=== PATIENT | male | born 1935 ===

== ENCOUNTER 2016-12-27 20:53 | Inpatient (IN) ==
--- NOTE | 2016-12-27 21:43 | Emergency Department Note ---
Disposition Clinical Impression: Elevated troponin Disposition: Admitted As Inpatient Condition: Good Referrals: NO,PCP [Primary Care Provider] - Forms: ED Satisfaction Letter General Adult HPI - General Chief complaint: ED Weakness Stated complaint: + trop, weakness Time Seen by Provider: 12/27/16 21:14 Source: family, EMS Limitations: no limitations Nursing Notes Reviewed: Yes Vital Signs Reviewed: Yes - History of Present Illness HPI Narrative: 81 y/o male with history of CVA years ago. He gets home PT due to chronic debility. Physical therapy noticed he was having difficulty walking and elevated HR so went [facility]. He was found to have elevated troponin. Hx of CABG and stents. [facility] but this was not seen on our EKG. He has difficulty expressing himself due to his old stroke. Pain Scale: 0 Improves with: nothing Worsens with: nothing - Related Data Allergies Allergy/AdvReac Type Severity Reaction Status Date / Time cephalexin Allergy Hives Verified 12/27/16 20:56 ciprofloxacin [From Cipro] Allergy Hives Verified 12/27/16 20:56 codeine Allergy Hives Verified 12/27/16 20:56 All systems ED: reviewed and negative except as stated. Constitutional: Denies: fever Respiratory: Denies: cough Gastrointestinal: Denies: vomiting, diarrhea Integumentary: Denies: rash Past Medical History - Past Medical History Medical history: Reports: CVA, hypertension, myocardial infarction Psychiatric history: Reports: no psych history - Social History Smoking Status: Former smoker Alcohol use: Reports: none Drug use: Reports: none Physical Exam - General Limitations: physical limitation General appearance: alert - Head Head exam: atraumatic - ENT ENT exam: normal exam, normal oropharynx - Neck Neck exam: Present: normal inspection - Respiratory Respiratory exam: Present: normal lung sounds bilaterally. Absent: respiratory distress - Cardiovascular Cardiovascular exam: Present: normal rhythm, tachycardia - Abdominal Exam Abdominal exam: Present: soft, Non-Tender - Extremities Exam Extremities exam: Present: normal inspection, other (right side is contracted from chronic disuse) - Neurological Exam Neurological exam: Present: alert - Psychiatric Psychiatric exam: Present: normal affect, normal mood - Skin Skin exam: Present: warm, dry Course Course Narrative: Positive troponin. No EKG changes found. Will admit with dx of NSTEMI Vital Signs Temperature 97.9 F 12/27/16 20:57 Pulse Rate 106 12/27/16 20:57 Respiratory Rate 16 12/27/16 20:57 Blood Pressure 117/67 12/27/16 20:57 O2 Sat by Pulse Oximetry 87 L 12/27/16 20:57 Temperature 97.9 F 12/27/16 20:57 Pulse Rate 106 12/27/16 20:57 Respiratory Rate 16 12/27/16 20:57 Blood Pressure 117/67 12/27/16 20:57 O2 Sat by Pulse Oximetry 87 L 12/27/16 20:57 Oxygen Delivery Oxygen Delivery Room Air Medical Decision Making - Medical Records Medical records reviewed: Yes I reviewed the patient's medical records. - Lab Data Lab results reviewed: Yes I reviewed the patient's lab results. - EKG Data EKG #1 EKG attestation: Yes I reviewed and interpreted this EKG. EKG shows normal: sinus rhythm Rate: tachycardia Interpretation: no acute changes Attestation Statement - Attestation Attestation: I, Jun Serrano MD, personally performed a history and physical exam of the patient and discussed their management with the resident. I reviewed the resident's note and agree with the documented findings, medical decision making , and plan of care. 81-year-old male referred here from the [facility] urgent care for an elevated troponin. Patient presented there for increased generalized weakness. Patient is generally nonambulatory without a lot of assistance. reports that they recently started some home therapy to try to get him to ambulating. She states that he did well Sunday and Sunday but then 3 days ago on Sunday he was extremely weak and was unable to ambulate and with assistance. Since then he has had increased generalized weakness and unable to stand. She also states that he seems to be more short of breath. He was seen at the [facility] and had a workup which revealed an elevated troponin and was then referred here for admission and evaluation and cardiology consultation. On examination patient is an elderly male in no acute distress. He is alert but does not really answer questions. There is no cyanosis or diaphoresis. Breath sounds are decreased but equal bilaterally. Heart regular rate and rhythm. Abdomen soft with normal bowel sounds and no apparent tenderness. EKG here shows some minimal ST depression in lead 2 and V3 through V5. The hospitalist, Dr. Bowie, was consulted and accepted admission of the patient.
[2016-12-28] MEDS ORDERED: Sennosides/Docusate Sodium TABLET PO PRN (00:52)
[2016-12-28] MEDS ORDERED: *HR* OxyCODONE Immed Rel 5 MG TABLET PO PRN (00:56)
[2016-12-28] MEDS ORDERED: *HR* Morphine 2 MG/ML SYRINGE IVP PRN (00:56)
[2016-12-28] MEDS ORDERED: Naloxone 0.4 MG/ML INJ IVP PRN (00:56)
[2016-12-28] MEDS ORDERED: *HR* Promethazine 25 MG/ML VIAL IVP PRN (00:56)
[2016-12-28] MEDS ORDERED: Acetaminophen 325 MG TABLET PO PRN (00:56)
[2016-12-28] MEDS ORDERED: Bumetanide 1 MG/4 ML VIAL IVP ONE (01:01)
[2016-12-28] MEDS ORDERED: *HR* Metoprolol 5 MG/5 ML VIAL IVP PRN (01:01)
[2016-12-28] MEDS ORDERED: Nitroglycerin 0.4 MG TAB.SUBL SL PRN (01:01)
[2016-12-28] MEDS ORDERED: Aspirin 81 MG TAB.CHEW PO ONE (01:01)
[2016-12-28] MEDS ORDERED: *HR* Enoxaparin 60 MG/0.6 ML SYRINGE SQ ONE (01:04)
[2016-12-28 02:23] LABS: Basophils # 0.1 K/mcL (0.0-0.2); Basophils % 0.3 %; Eosinophils # 1.3 K/mcL (0.0-0.6); Eosinophils % 7.2 %; Hematocrit 31.9 % (37.5-50.1); Hemoglobin 10.2 g/dL (12.9-16.9); Immature Platelets 4.6 % (1.1-6.1); Lymphocytes # 1.6 K/mcL (0.6-4.6); Lymphocytes % 8.5 %; Mean Corpuscular Hemoglobin 30.5 pg (28.0-33.3); Mean Corpuscular Volume 95.5 fL (83.0-100.0); Mean Platelet Volume 10.4 fL (9.4-12.4); Monocytes # 1.6 K/mcL (0.0-1.3); Monocytes % 8.5 %; Neutrophils # 13.6 K/mcL (1.6-8.9); Platelet Count 293 K/mcL (140-400); Red Blood Count 3.34 M/mcL (4.19-5.50); Red Cell Distribution Width 16.3 % (11.5-14.5); Segmented Neutrophils % 74.5 %
[2016-12-28 02:30] LABS: VBG HCO3 28.5 mEq/L (21-27); VBG PH 7.4 pH Units (7.32-7.42)
[2016-12-28 02:33] LABS: Hemoglobin A1C 5.2 %
[2016-12-28 02:36] LABS: INR 1.4; Prothrombin Time 14.8 Seconds (9.4-12.1)
[2016-12-28 02:38] LABS: Activated Partial Thrombo Time 29.5 Seconds (26.0-36.0); Ionized Calcium 1.22 mmol/L (1.15-1.35)
[2016-12-28 02:49] LABS: Alanine Aminotransferase 39 Units/L (0-55); Albumin 2.5 g/dL (3.5-5.0); Albumin/Globulin Ratio 0.5 (1.1-2.2); Alkaline Phosphatase 105 Units/L (38-126); Aspartate Amino Transferase 40 Units/L (5-34); BUN/Creatinine Ratio 13 (6-26); Blood Urea Nitrogen 14 mg/dL (8-26); C-Reactive Protein 137 mg/L (Less than 5); Calcium 9.6 mg/dL (8.6-10.8); Carbon Dioxide 26 mEq/L (19-29); Chloride 107 mEq/L (98-109); Chol/HDL Ratio 2.3 (0-4.9); Cholesterol 90 mg/dL (< 200); Creatine Kinase 19 Units/L (30-200); Globulin 4.7 g/dL (2.4-3.5); Glucose 118 mg/dL (70-99); HDL Cholesterol 40 mg/dL (40-59); LDL Cholesterol,Calculated 36 mg/dL (0-99); Osmolality,Calculated 290 (280-300); Potassium 4.5 mEq/L (3.5-4.5); Sodium 139 mEq/L (136-145); Total Protein 7.2 g/dL (6.0-8.3); Triglycerides 71 mg/dL (< 150); eGFR For African Americans > 60 (> 60); eGFR For Non-African Americans > 60 (> 60)
[2016-12-28 03:28] LABS: Thyroid Stimulating Hormone 3.683 mcIU/mL (0.350-4.840)
[2016-12-28 03:41] LABS: Anisocytosis 1+ (Not Present)
[2016-12-28 03:42] LABS: Large Platelets Present (Not Present); Platelet Estimate Normal (Normal); Polychromasia 1+ (Not Present)
--- NOTE | 2016-12-28 08:41 | Internal Med History&Physical ---
Date of Encounter: 12/27/16 Time of Encounter: 01:00 Assessment and Plan (1) Generalized weakness Status: Acute . (2) At risk for accident in home Status: Chronic . (3) At risk for acid-base imbalance Status: Acute . (4) At risk for activity intolerance Status: Chronic . (5) At risk for acute confusion Status: Acute . (6) At risk for acute ischemic cardiac event Status: Chronic . (7) Elevated troponin I measurement Status: Acute . (8) Demand ischemia of myocardium Status: Acute . (9) Hx of CABG Status: Chronic . (10) CAD (coronary artery disease), [place] coronary artery Status: Chronic . Qualifiers: [place] vs. transplanted heart: [place] heart Associated angina: angina presence unspecified Qualified Code(s): I25.10 - Atherosclerotic heart disease of [place] coronary artery without angina pectoris (11) CVA, old, aphasia Status: Chronic . (12) SIRS (systemic inflammatory response syndrome) Status: Acute . Internal Medicine - H&P: HPI Chief complaint: Generalized weakness Admitted From: Hospital to Hospital Transfer Plans for Post Hospital Care: Home History of present illness: Mr. 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 Patient is admitted to a [facility] via the emergency department when he presents via EMS services from home with reports of generalized weakness. Patient is referred to the ED from [facility] urgent care center where he had presented earlier and was found to have an elevated troponin. Patient presented tear due to increased generalized weakness and inability to ambulate. Generally the patient is nonambulatory without acute illnesses since. However home health therapy had been initiated to try to assist the patient in ambulating. He did well on Sunday and Sunday prior to this presentation but then 3 days prior to presentation on Sunday he became extremely weak and was unable to ambulate without assistance. Since then he has experienced generalized weakness to the extent that he is unable to stand. He reports increased shortness of breath feeling of generalized malaise .history is significant for old CVA with residual expressive aphasia and cognitive deficits as well as ataxia with gait disturbance. He also has advanced CAD status post CABG status post PTCA with stents status post prior myocardial infarction. At the [facility] he was also noted to have appeared to be new onset atrial fibrillation with RVR. Not present at the time of admission to the ED. confirmatory troponin returned at 0.09 within therapeutic range, NT proBNP elevated at 5825. He complained of shortness of breath with exertion and elevated heart rate also with small amounts of exertion experienced over the last week prior to his presentation. Her measured as high as 120 bpm per family. No report of any fevers chills cough production total pain nausea vomiting diarrhea no headache. Findings in the ED: Temperature 97.9 pulse 106 respirations 16 BP 117/67. O2 saturation 87% room air. WBC 13.4 hemoglobin 14 platelets [id number]. Differential showed an increase in neutrophils. Metabolic panel normal except for potassium of 4.9. BUN 13 creatinine 1.12. Troponin 0.11. EKG sinus rhythm. Sinus tachycardia. No acute ischemic changes. Preliminary impression suggest severe debility and failure to thrive adult multifactorial. Patient presents with troponin elevation and pre-transfer from the [facility] paroxysmal atrial fibrillation with rapid ventricular response. He is a patient with end-stage CAD/CABG/CA/AMI 2 and a vasculopath who is status post CVA with expressive aphasia ataxic gait right hemiplegia and cognitive impairment. He presents high risk for further acute clinical decline and morbidity in this setting. Systemic inflammatory response syndrome criteria are met. Troponin elevation likely a consequence of demand ischemia and impaired Oxygen demand and is frail elderly gentleman. He presents with acute on chronic hypoxic respiratory failure with mixed features of COPD exacerbation and systolic CHF decompensation. WORKUP AND TREATMENTS WILL PROGRESS COMPREHENSIVELY. Cumulative laboratory and radiographic data base was reviewed, considered and discussed. Pertinent ancillary medical records including ECW and PCI documentation was reviewed and considered. Given the patient's presenting concerns, past medical history, clinical findings and symptoms, he is admitted at this time will undergo further evaluation and disposition. Orders were written as per the computerized physician forder operator system.......................................................................... .................... Consultative opinions will be sought as clinical circumstances justify. Initial consultative opinion has been requested of cardiology. Pain management needs will be addressed. Laboratory and radiographic data base will be updated as appropriate. Studies include: Cultures blood urine and sputum, Ddimer, PT/INR, APTT, CPK, LDH, cardiac injury panel, BNP, metabolic and hematologic panel, magnesium, phosphorus, ionized calcium, thyroid panel, lipid profile, A1c, C-peptide, CRP, sedimentation rate, respiratory infection profile, respiratory virus panel, blood gas, lactic acid, serologies, etc. Precautions: Aspiration, fall, delirium protocol/surveillance initiated. Telemetry with continuous hemodynamic monitoring and pulse oximetry initiated. Orthostatic vital signs. Empiric antibiotic coverage: pending diagnostic/culture data. Special studies: CT/CTA chest, CT head, chest x-ray, telemetry, EKG, echocardiogram. Pulmonary toilet: Incentive spirometry, aerosol bronchodilator, mucolytic, antitussive, supplemental oxygen. Corticosteroid therapy. CPAP/BiPAP supplemental oxygen delivery. Aerosol Mucomyst therapy. Fluid and electrolyte repletion efforts will proceed. Careful attention to fluid balance and renal recovery will be emphasized. Avoidance of nephrotoxic exposure and adverse drug drug interaction in the setting of impaired renal function will be monitored closely. Acute coronary syndrome protocol/surveillance initiated. Aspirin, statin, VAMSI inhibitor, beta lyssa. When necessary nitrates. Morphine when necessary. Therapeutic Lovenox. Supplemental oxygen. Empiric acute heart failure protocol/surveillance initiated. IV Bumex. 1500- 1800 ml total fluid restriction per 24hrs. KEYA/low sodium diet restriction. DVT and PUD prophylaxis initiated: PPI therapy, intermittent pneumatic cuffs. Subcutaneous heparin/Lovenox. Early ambulation will be encouraged. Immunization updates recommended. Influenza and pneumococcal vaccinations as part of ongoing preventative healthcare recommendations strongly recommended. Smoking cessation counseling briefly addressed. Patient is a former smoker. Advanced care directive discussion briefly addressed. Patient does not declare any healthcare restrictions at this time. Cardiovascular risk appraisal and cardiovascular risk reduction efforts will be emphasized. Physical and occupational therapy consulted to evaluate/assess patient's functional capacity and progress mobility as circumstances permit. Nutrition/dietary education counseling may be considered as circumstances justify. Outpatient medication schedules will be reviewed, confirmed and facilitated as appropriate. Reconciliation of home treatments including adjustments, substitutions and reintroduction into the treatment regimen will address necessary maintenance therapies for chronic pre-existing medical conditions. Plan of care has been reviewed and discussed in detail with the patient. Questions addressed. Hospital course dictated by clinical findings, treatment response and potential consultative interventions. Patient is at risk for further acute clinical decline and morbidity due to his advanced age,frailty, chief complaints and comorbid conditions. Condition is serious. Prognosis is guarded. CODE STATUS is reported as full. Past Med Surg Social Fam HX - Past Medical History Source: old records reviewed Medical history: arthritis, COPD, coronary artery disease, CVA, GERD, hyperlipidemia, hypertension, myocardial infarction, osteoporosis, peripheral artery disease, renal disease, thyroid disease, TIA, other Psychiatric history: anxiety, depression - Past Surgical History Surgical History: angioplasty/stent, cancer surgery (Left hand squamous cell carcinoma lesion x2;excisions.), cholecystectomy, coronary bypass (CABG), vascular surgery, other - Social History Smoking Status: Former smoker Alcohol use: none Drug use: none Occupational status: retired, disabled Current living situation: With Family Activity Level: Bed bound, Mostly sedentary Recent Out of Country Travel Within the Last 8 Weeks: No Exposure or Possible Exposure to Illness During Travel: No Internal Medicine - H&P: Meds Alfuzosin HCl [Uroxatral] 10 mg PO DAILY 12/27/16 [History] Carboxymethylcellulose Sodium [Refresh Liquigel] 1 drop BOTH EYES QID 12/27/16 [ History] Cholecalciferol (D-3) [Vitamin D] 1,000 unit PO DAILY 12/27/16 [History] Clopidogrel [Plavix] 75 mg PO DAILY 12/27/16 [History] Finasteride [Proscar] 5 mg PO DAILY 12/27/16 [History] Lactose-Reduced Food [Ensure Plus] 1 bottle PO BID 12/27/16 [History] Levothyroxine [Synthroid] 37.5 mcg PO QAM 12/27/16 [History] Multivitamin [Multi-Day Vitamins] 1 each PO DAILY 12/27/16 [History] Ranitidine HCl [Zantac] 150 mg PO DAILY PRN 12/27/16 [History] Sennosides/Docusate Sodium [Senna Plus] 1 each PO BID PRN 12/27/16 [History] Sertraline [Zoloft] 200 mg PO DAILY 12/27/16 [History] Simvastatin [Zocor] 20 mg PO HS 12/27/16 [History] Trazodone HCl 100 mg PO HS 12/27/16 [History] Xanthan Gum [Simplythick] 15 gm PO AD 12/27/16 [History] Aspirin Enteric Coated [Aspirin EC] 81 mg PO DAILY #30 tablet. 12/31/16 [Rx] Albuterol Neb [AccuNeb] 0.63 mg IH Q6HR PRN 30 Days 01/02/17 [Rx] Amoxicillin/Clavulanate [Augmentin] 875 mg PO BIDWM #4 tablet 01/02/17 [Rx] Bumetanide [Bumex] 0.5 mg PO BIDDIURETIC #60 tablet 01/02/17 [Rx] Doxycycline Hyclate 100 mg PO BID #3 tablet. 01/02/17 [Rx] Metoprolol XL (24 HR) Succ [Toprol Xl] 75 mg PO DAILY 30 Days 01/02/17 [Rx] Allergies cephalexin Allergy (Verified 12/27/16 20:56) Hives ciprofloxacin [From Cipro] Allergy (Verified 12/27/16 20:56) Hives codeine Allergy (Verified 12/27/16 20:56) Hives ROS unobtainable: due to mental status All Systems PM: A 10-system review of systems was performed and is negative for pertinent findings except as documented above in the HPI. - Constitutional Constitutional: as per HPI, fatigue, malaise, weakness, other, no chills, no fever(s), no night sweats - EENT Eyes: as per HPI, no change in vision, no discharge, no pain, no photophobia Ears: as per HPI, no ear discharge, no ear pain, no tinnitus Nose, mouth and throat: as per HPI, no dysphagia, no nasal discharge, no neck pain, no sore throat - Cardiovascular Cardiovascular ROS IM: as per HPI, no chest pain, no diaphoresis, no dyspnea, no lightheadedness, no palpitations, no syncope - Respiratory Respiratory: as per HPI, no cough, no dyspnea, no wheezing, no excessive phlegm production - Gastrointestinal Gastrointestinal: as per HPI, no abdominal pain, no diarrhea, no hematemesis, no hematochezia, no melena, no nausea, no vomiting - Genitourinary Genitourinary ROS male: as per HPI - Musculoskeletal Musculoskeletal ROS IM: as per HPI, no numbness, no tingling - Integumentary Integumentary IM: as per HPI, no rash, no unusual bruising - Neurological Neurological ROS: as per HPI, confusion, focal weakness, headache(s), other, no convulsions, no numbness, no tingling, no tremor(s) - Psychiatric Psychiatric: as per HPI - Endocrine Endocrine IM: as per HPI - Hematologic/Lymphatic Hematologic/Lymphatic: as per HPI, no easy bruising - Allergic/Immunologic Allergic/Immunologic: as per HPI - Constitutional Vitals: Temp Pulse Resp BP Pulse Ox 98.2 F 102 22 125/65 96 12/27/16 23:49 12/28/16 07:27 12/28/16 07:27 12/28/16 07:27 12/28/16 07:27 General appearance: Present: cooperative, A&O X 2, mild distress, obese. Absent : answers questions appropriately - Head Head exam: Present: atraumatic, normocephalic - Eye Eye exam: Present: EOMI, PERRL, conjuntiva pink, sclera anicteric Pupils: Present: normal accommodation - ENT ENT exam: Present: mucous membranes moist, normal oropharynx - Neck Neck exam general surgery: Present: full ROM, tenderness, supple, trachea midline. Absent: lymphadenopathy - Respiratory Respiratory exam: Present: decreased breath sounds, CTAB. Absent: accessory muscle use, rales, rhonchi, wheezes - Cardiovascular Cardiovascular exam: Present: distant heart sounds, RRR, +S1, +S2. Absent: diastolic murmur, gallop, rubs, systolic murmur - GI/Abdominal GI/Abdominal exam: Present: normal bowel sounds, soft, no peritoneal signs. Absent: distended, tenderness - Extremities Exam Extremities exam: Present: full ROM, warm, radial pulses palpable and symetrical. Absent: calf tenderness, cyanotic, pedal edema - Neurological Exam Neurological exam: Present: alert, altered, CN II-XII intact, motor sensory deficit. Absent: oriented X3, strengths equal and symetr throughout, pronater drift, facial droop, speech deficit - Expanded Neurological Exam Neurological exam expanded: Present: ataxia, expressive aphasia, protecting the airway. Absent: tremor Patient oriented to: Present: person, place. Absent: time Speech: Present: expressive aphasia Coma Scale Eye Opening: Spontaneous Coma Scale Motor Response: Obeys Commands Coma Scale Verbal Response: Incomprehensible Coma Scale Total: 12 - Psychiatric Psychiatric exam: Present: normal affect, normal mood - Skin Skin exam: Present: dry, intact, warm. Absent: petechiae, rash, urticaria, vesicles Internal Med - H&P Results - Labs CBC & Chem 7: 01/02/17 14:25 01/02/17 14:25 Labs: Short CBC 12/28/16 Range/Units 02:09 WBC 18.3 H (4.3-11.1) K/mcL Hgb 10.2 L (12.9-16.9) g/dL Hct 31.9 L (37.5-50.1) % Plt Count 293 (140-400) K/mcL Neutrophils # 13.6 H (1.6-8.9) K/mcL BMP 12/28/16 02:09 Sodium 139 Potassium 4.5 Chloride 107 Carbon Dioxide 26 BUN 14 Creatinine 1.08 Glucose 118 H Calcium 9.6 Cardiac Enzymes 12/28/16 12/28/16 Range/Units 02:09 06:39 Troponin I 0.11 H* 0.09 H* (0-0.03) ng/mL Liver Function 12/28/16 Range/Units 02:09 Total Bilirubin 1.0 (0.2-1.2) mg/dL AST 40 H (5-34) Units/L ALT 39 (0-55) Units/L Alkaline Phosphatase 105 (38-126) Units/L Albumin 2.5 L (3.5-5.0) g/dL - ABG Interpretation ABG results: 12/28/16 02:09 VBG pH 7.40 VBG pCO2 46 VBG pO2 39 VBG HCO3 28.5 H - Impressions ITS Impressions Chest X-Ray 12/28/16 07:32 IMPRESSION: Bilateral airspace disease with small right-sided pleural effusion, either due to pneumonia or pulmonary edema D/ / Edgardo Tong MD / Edgardo Tong MD Interpreting Provider: Edgardo Tong MD Vital Signs Temp Pulse Resp BP Pulse Ox 12/28/16 07:27 102 22 125/65 96 12/28/16 03:55 94 L 12/27/16 23:49 98.2 F 97 16 118/64 96 12/27/16 22:52 14 109/63 12/27/16 21:01 94 L 12/27/16 20:57 97.9 F 106 16 117/67 87 L Intake and Output 12/27/16 12/28/16 12/28/16 23:59 07:59 15:59 Output Total 300 / 300 Balance -300 / -300 Output: Urine 300 / 300 Other: # Urine Diapers 1 Weight 81.647 kg Short CBC 12/28/16 Range/Units 02:09 WBC 18.3 H (4.3-11.1) K/mcL Hgb 10.2 L (12.9-16.9) g/dL Hct 31.9 L (37.5-50.1) % Plt Count 293 (140-400) K/mcL Neutrophils # 13.6 H (1.6-8.9) K/mcL BMP 12/28/16 Range/Units 02:09 Sodium 139 (136-145) mEq/L Potassium 4.5 (3.5-4.5) mEq/L Chloride 107 (98-109) mEq/L Carbon Dioxide 26 (19-29) mEq/L BUN 14 (8-26) mg/dL Creatinine 1.08 (0.72-1.25) mg/dL Glucose 118 H (70-99) mg/dL Calcium 9.6 (8.6-10.8) mg/dL Cardiac Enzymes 12/28/16 12/28/16 12/27/16 Range/Units 06:39 02:09 21:51 Troponin I 0.09 H* 0.11 H* 0.11 H* (0-0.03) ng/mL Liver Function 12/28/16 Range/Units 02:09 Total Bilirubin 1.0 (0.2-1.2) mg/dL AST 40 H (5-34) Units/L ALT 39 (0-55) Units/L Alkaline Phosphatase 105 (38-126) Units/L Albumin 2.5 L (3.5-5.0) g/dL 12/28/16 02:09 VBG pH 7.40 VBG pCO2 46 VBG pO2 39 VBG HCO3 28.5 H Abnormal lab results WBC 18.3 K/mcL (4.3-11.1) H 12/28/16 02:09 RBC 3.34 M/mcL (4.19-5.50) L 12/28/16 02:09 Hgb 10.2 g/dL (12.9-16.9) L 12/28/16 02:09 Hct 31.9 % (37.5-50.1) L 12/28/16 02:09 RDW 16.3 % (11.5-14.5) H 12/28/16 02:09 Neutrophils # 13.6 K/mcL (1.6-8.9) H 12/28/16 02:09 Monocytes # 1.6 K/mcL (0.0-1.3) H 12/28/16 02:09 Eosinophils # 1.3 K/mcL (0.0-0.6) H 12/28/16 02:09 Large Platelets Present (Not Present) A 12/28/16 02:09 Polychromasia 1+ (Not Present) A 12/28/16 02:09 Anisocytosis 1+ (Not Present) A 12/28/16 02:09 PT 14.8 Seconds (9.4-12.1) H 12/28/16 02:09 VBG HCO3 28.5 mEq/L (21-27) H 12/28/16 02:09 Glucose 118 mg/dL (70-99) H 12/28/16 02:09 AST 40 Units/L (5-34) H 12/28/16 02:09 Creatine Kinase 19 Units/L (30-200) L 12/28/16 02:09 Troponin I 0.09 ng/mL (0-0.03) H* 12/28/16 06:39 C-Reactive Protein 137 mg/L (Less than 5) H 12/28/16 02:09 B-Natriuretic Peptide 273 pg/mL (0-100) H 12/28/16 02:09 Albumin 2.5 g/dL (3.5-5.0) L 12/28/16 02:09 Globulin 4.7 g/dL (2.4-3.5) H 12/28/16 02:09 Albumin/Globulin Ratio 0.5 (1.1-2.2) L 12/28/16 02:09 Allergies Allergy/AdvReac Type Severity Reaction Status Date / Time cephalexin Allergy Hives Verified 12/27/16 20:56 ciprofloxacin [From Cipro] Allergy Hives Verified 12/27/16 20:56 codeine Allergy Hives Verified 12/27/16 20:56 Laboratory Results WBC 18.3 K/mcL (4.3-11.1) H 12/28/16 02:09 RBC 3.34 M/mcL (4.19-5.50) L 12/28/16 02:09 Hgb 10.2 g/dL (12.9-16.9) L 12/28/16 02:09 Hct 31.9 % (37.5-50.1) L 12/28/16 02:09 MCV 95.5 fL (83.0-100.0) 12/28/16 02:09 MCH 30.5 pg (28.0-33.3) 12/28/16 02:09 MCHC 32.0 g/dL (31.6-35.5) 12/28/16 02:09 RDW 16.3 % (11.5-14.5) H 12/28/16 02:09 Plt Count 293 K/mcL (140-400) 12/28/16 02:09 MPV 10.4 fL (9.4-12.4) 12/28/16 02:09 Immature Gran % 1.0 % (0-4) 12/28/16 02:09 Seg Neutrophils % 74.5 % 12/28/16 02:09 Lymphocytes % 8.5 % 12/28/16 02:09 Monocytes % 8.5 % 12/28/16 02:09 Eosinophils % 7.2 % 12/28/16 02:09 Basophils % 0.3 % 12/28/16 02:09 Neutrophils # 13.6 K/mcL (1.6-8.9) H 12/28/16 02:09 Lymphocytes # 1.6 K/mcL (0.6-4.6) 12/28/16 02:09 Monocytes # 1.6 K/mcL (0.0-1.3) H 12/28/16 02:09 Eosinophils # 1.3 K/mcL (0.0-0.6) H 12/28/16 02:09 Basophils # 0.1 K/mcL (0.0-0.2) 12/28/16 02:09 Platelet Estimate Normal (Normal) 12/28/16 02:09 Large Platelets Present (Not Present) A 12/28/16 02:09 Immature Plt Fraction 4.6 % (1.1-6.1) 12/28/16 02:09 Polychromasia 1+ (Not Present) A 12/28/16 02:09 Anisocytosis 1+ (Not Present) A 12/28/16 02:09 PT 14.8 Seconds (9.4-12.1) H 12/28/16 02:09 INR 1.4 12/28/16 02:09 APTT 29.5 Seconds (26.0-36.0) 12/28/16 02:09 VBG pH 7.40 pH Units (7.32-7.42) 12/28/16 02:09 VBG pCO2 46 mmHg (41-51) 12/28/16 02:09 VBG pO2 39 mmHg (25-40) 12/28/16 02:09 VBG HCO3 28.5 mEq/L (21-27) H 12/28/16 02:09 Sodium 139 mEq/L (136-145) 12/28/16 02:09 Potassium 4.5 mEq/L (3.5-4.5) 12/28/16 02:09 Chloride 107 mEq/L (98-109) 12/28/16 02:09 Carbon Dioxide 26 mEq/L (19-29) 12/28/16 02:09 BUN 14 mg/dL (8-26) 12/28/16 02:09 Creatinine 1.08 mg/dL (0.72-1.25) 12/28/16 02:09 Est GFR ( Amer) > 60 (> 60) 12/28/16 02:09 Est GFR (Non-Af Amer) > 60 (> 60) 12/28/16 02:09 BUN/Creatinine Ratio 13 (6-26) 12/28/16 02:09 Glucose 118 mg/dL (70-99) H 12/28/16 02:09 Est Mean Plasma Glucose 103 mg/dl 12/28/16 02:09 Hemoglobin A1c 5.2 % (-5.6) 12/28/16 02:09 Calculated Osmolality 290 (280-300) 12/28/16 02:09 Lactic Acid 1.3 mmol/L (0.5-2.2) 12/28/16 02:09 Calcium 9.6 mg/dL (8.6-10.8) 12/28/16 02:09 Ionized Calcium 1.22 mmol/L (1.15-1.35) 12/28/16 02:09 Phosphorus 3.0 mg/dL (2.3-4.7) 12/28/16 02:09 Magnesium 2.0 mg/dL (1.6-2.6) 12/28/16 02:09 Total Bilirubin 1.0 mg/dL (0.2-1.2) 12/28/16 02:09 AST 40 Units/L (5-34) H 12/28/16 02:09 ALT 39 Units/L (0-55) 12/28/16 02:09 Alkaline Phosphatase 105 Units/L (38-126) 12/28/16 02:09 Creatine Kinase 19 Units/L (30-200) L 12/28/16 02:09 Troponin I 0.09 ng/mL (0-0.03) H* 12/28/16 06:39 C-Reactive Protein 137 mg/L (Less than 5) H 12/28/16 02:09 B-Natriuretic Peptide 273 pg/mL (0-100) H 12/28/16 02:09 Serum Total Protein 7.2 g/dL (6.0-8.3) 12/28/16 02:09 Albumin 2.5 g/dL (3.5-5.0) L 12/28/16 02:09 Globulin 4.7 g/dL (2.4-3.5) H 12/28/16 02:09 Albumin/Globulin Ratio 0.5 (1.1-2.2) L 12/28/16 02:09 Triglycerides 71 mg/dL (< 150) 12/28/16 02:09 Cholesterol 90 mg/dL (< 200) 12/28/16 02:09 LDL Cholesterol, Calc 36 mg/dL (0-99) 12/28/16 02:09 VLDL Cholesterol, Calc 14 mg/dL (< 31) 12/28/16 02:09 HDL Cholesterol 40 mg/dL (40-59) 12/28/16 02:09 Cholesterol/HDL Ratio 2.3 (0-4.9) 12/28/16 02:09 TSH 3.683 mcIU/mL (0.350-4.840) 12/28/16 02:09 Blood Type A POSITIVE 12/28/16 02:09 Antibody Screen NEGATIVE 12/28/16 02:09 Impressions Chest X-Ray 12/28/16 07:32
[2016-12-28] MEDS ORDERED: Aspirin 81 MG TAB.CHEW PO SCH (09:00)
[2016-12-28] MEDS ORDERED: (Ensure Plus] 1 BOTTLE) PO SCH (09:00)
--- NOTE | 2016-12-28 09:02 | Cardiology Consult Note ---
<Torsten Rodriguez - Last Filed: 12/28/16 10:01> Date of Encounter: 12/28/16 Time of Encounter: 09:01 Assessment and Plan (1) Elevated troponin Current Visit: Yes Status: Acute Stable levels of troponin with downward trend. Echocardiogram today Repeat EKG, Non-specific [facility]. (2) Generalized weakness Current Visit: Yes Status: Acute Echocardiogram pending Does not appear to be in overt failure. No dyspnea and clear lungs to auscultation without pitting edema. (3) CAD (coronary artery disease), [place] coronary artery Current Visit: Yes Status: Chronic Qualifiers: [place] vs. transplanted heart: [place] heart Associated angina: angina presence unspecified Qualified Code(s): I25.10 - Atherosclerotic heart disease of [place] coronary artery without angina pectoris (4) CVA, old, aphasia Current Visit: Yes Status: Chronic Baseline deficits making communication difficult at times thus history is mildly difficult to assess. (5) Hx of CABG Current Visit: Yes Status: Chronic Unknown when according to patient history. We will obtain [facility] records. Discussion w patient/family: The assessment and plan as outlined above was discussed with the patient and/or family members who expressed understanding and agreement. All questions were answered. Thank you for involving us in the care of your patient. Please call with any questions. History of Present Illness Consult date: 12/28/16 Requesting physician: Jl Dao Consult reason: Elevated Cardiac Enzymes Chief complaint: Weakness History of present illness: Mr. Raman is a 81 year old male arrives as a transfer from the [facility] for elevated troponin after the patient presented there for generalized weakness. Patient has history of CVA with chronic deficits with communication and right sided weakness. History of HTN, HLD, CVA, CHF. Patient is baseline non-ambulatory but recently began undergoing home physical therapy. Patient states that over the past 2 weeks , he has felt weaker but states roughly 2 days after his physical therapy he felt much worse. [facility] was found to have elevated troponin and [facility] EKG initially demonstrated mild lateral ST depression. Troponin trended downward slightly overnight. Denies any chest pain over the last 2 weeks. Patient was found to have had 2 KIRIT placed in 2004 at [facility]. No record of CABG identified but noted sternotomy scar noted on patient. Past Med Surg Social Fam HX - Past Medical History Attestation: Yes The following information was validated with the patient. Source: patient, old records reviewed Medical history: arthritis, coronary artery disease, CVA, hypertension, myocardial infarction, peripheral artery disease, TIA, other Psychiatric history: no psych history - Past Surgical History Surgical History: coronary bypass (CABG), other - Social History Smoking Status: Former smoker Alcohol use: none Drug use: none Activity Level: Mostly sedentary Medications and Allergies Alfuzosin HCl [Uroxatral] 10 mg PO DAILY 12/27/16 [History] Carboxymethylcellulose Sodium [Refresh Liquigel] 1 drop BOTH EYES QID 12/27/16 [ History] Cholecalciferol (D-3) [Vitamin D] 1,000 unit PO DAILY 12/27/16 [History] Clopidogrel [Plavix] 75 mg PO DAILY 12/27/16 [History] Finasteride [Proscar] 5 mg PO DAILY 12/27/16 [History] Lactose-Reduced Food [Ensure Plus] 1 bottle PO BID 12/27/16 [History] Levothyroxine [Synthroid] 37.5 mcg PO QAM 12/27/16 [History] Metoprolol XL (24 HR) Succ [Toprol XL] 50 mg PO DAILY 12/27/16 [History] Multivitamin [Multi-Day Vitamins] 1 each PO DAILY 12/27/16 [History] Ranitidine HCl [Zantac] 150 mg PO DAILY PRN 12/27/16 [History] Sennosides/Docusate Sodium [Senna Plus] 1 each PO BID PRN 12/27/16 [History] Sertraline [Zoloft] 200 mg PO DAILY 12/27/16 [History] Simvastatin [Zocor] 20 mg PO HS 12/27/16 [History] Trazodone HCl 100 mg PO HS 12/27/16 [History] Xanthan Gum [Simplythick] 15 gm PO AD 12/27/16 [History] Allergies cephalexin Allergy (Verified 12/27/16 20:56) Hives ciprofloxacin [From Cipro] Allergy (Verified 12/27/16 20:56) Hives codeine Allergy (Verified 12/27/16 20:56) Hives All Systems Review: A 10-system review of systems was performed and is negative for pertinent findings except as documented above in the HPI. - Constitutional Constitutional: fatigue - Musculoskeletal Musculoskeletal: muscle weakness (baseline) - Neurological Neurological: other (Dysphasia at baseline) Physical Examination Vital Signs, Last 4 Hours Pulse Resp BP Pulse Ox 12/28/16 07:27 102 22 125/65 96 General: No Apparent Distress HEENT: Mucus Membranes Moist Neck: No JVD Cardiac: Reg Rate and Rhythm, Normal S1 and S2, No Murmur Lungs: Other (Coarse breath sounds bilaterally) Neuro: Alert and responsive, Other (Baseline deficits) Abdomen: Soft, Non-Tender Skin: No rashes noted on visualized skin Musculoskeletal: No Chest Wall Tenderness, Other (Sternotomy scar noted ) Extremities: No Clubbing, No Cyanosis Results 12/28/16 02:09 12/28/16 02:09 Lab Results 12/28/16 12/28/16 12/28/16 02:09 02:09 02:09 WBC 18.3 H Hgb 10.2 L Hct 31.9 L Plt Count 293 INR 1.4 APTT 29.5 Sodium Potassium Chloride Carbon Dioxide BUN Creatinine Glucose Calcium Magnesium Total Bilirubin AST ALT Alkaline Phosphatase Troponin I 0.11 H* B-Natriuretic Peptide TSH 12/28/16 12/28/16 12/28/16 02:09 02:09 06:39 WBC Hgb Hct Plt Count INR APTT Sodium 139 Potassium 4.5 Chloride 107 Carbon Dioxide 26 BUN 14 Creatinine 1.08 Glucose 118 H Calcium 9.6 Magnesium 2.0 Total Bilirubin 1.0 AST 40 H ALT 39 Alkaline Phosphatase 105 Troponin I 0.09 H* B-Natriuretic Peptide 273 H TSH 3.683 - Imaging and Cardiology Chest Xray: report reviewed, image reviewed Echo: pending - EKG Interpretation EKG results cardiology: personally reviewed Consult Discharge Plan - Plan Referrals: [facility] [Primary Care Provider] - - Attending Attestation I examined this patient and my medical decision-making was reviewed with the Resident Physician. I agree with the documented findings, disposition and treatment plan as described except to the extent set forth below. <Nano Lara - Last Filed: 12/28/16 13:13> Date of Encounter: 12/28/16 Assessment and Plan Discussion w patient/family: The assessment and plan as outlined above was discussed with the patient and/or family members who expressed understanding and agreement. All questions were answered. Thank you for involving us in the care of your patient. Please call with any questions. History of Present Illness History of present illness: Mr. Raman is a 81 year old male All Systems Review: A 10-system review of systems was performed and is negative for pertinent findings except as documented above in the HPI. Physical Examination Vital Signs, Last 4 Hours Temp Pulse Resp BP Pulse Ox 12/28/16 12:09 97.6 F 97 18 114/69 97 12/28/16 11:18 102 22 125/65 96 Results 12/28/16 02:09 12/28/16 02:09 Lab Results 12/28/16 12/28/16 12/28/16 02:09 02:09 02:09 WBC 18.3 H Hgb 10.2 L Hct 31.9 L Plt Count 293 INR 1.4 APTT 29.5 Sodium Potassium Chloride Carbon Dioxide BUN Creatinine Glucose Calcium Magnesium Total Bilirubin AST ALT Alkaline Phosphatase Troponin I 0.11 H* B-Natriuretic Peptide TSH 12/28/16 12/28/16 12/28/16 02:09 02:09 06:39 WBC Hgb Hct Plt Count INR APTT Sodium 139 Potassium 4.5 Chloride 107 Carbon Dioxide 26 BUN 14 Creatinine 1.08 Glucose 118 H Calcium 9.6 Magnesium 2.0 Total Bilirubin 1.0 AST 40 H ALT 39 Alkaline Phosphatase 105 Troponin I 0.09 H* B-Natriuretic Peptide 273 H TSH 3.683 - Attending Attestation I examined this patient and my medical decision-making was reviewed with the MOLD DESIGNER/PA/Advanced Practice Nurse/Resident Physician. I agree with the documented findings, disposition and treatment plan. [facility] and was apparently [facility] there for increased weakness. Unfortunately, the patient has baseline dementia and is unable to give any details and does not provide symptoms other than telling me he is not having chest pain now. He does incidentally have a leukocytosis and CXR with possible PNA. I recommend we obtain an echo for review of structure/function before making further plan of care. His troponins are mild, flat and adynamic suggesting against the presence of ACS. In the meantime, I agree with antiplatelet therapy, statin and BB.
[2016-12-28] MEDS: Levothyroxine 25 MCG TABLET PO SCH (09:39)
[2016-12-28] MEDS: Artificial Tears SOLN 15 ML BOTTLE BOTH EYES SCH ×4 (09:40→21:13)
[2016-12-28] MEDS: Finasteride 5 MG TABLET PO SCH (09:40)
[2016-12-28] MEDS: Metoprolol XL (24 HR) Succ 50 MG TAB.ER.24H PO SCH (09:40)
[2016-12-28] MEDS: Bumetanide 1 MG/4 ML VIAL IVP SCH ×2 (09:41→18:09)
[2016-12-28] MEDS: Piperacillin/Tazobactam 3.375 GM in D5% in Water (Mini-Bag+) 100 ML IVPB SCH ×3 (12:47→23:54)
--- NOTE | 2016-12-28 16:06 | Internal Med Progress Note ---
Date of Encounter: 12/28/16 Time of Encounter: 16:03 - Assessment and plan (1) Pneumonia Current Visit: Yes Status: Suspected Assessment and plan: Patient has leukocytosis with extensive findings suggestive of bilateral infiltrates. He is also requiring O2 supplementation. Given these findings, we will start him on treatment for suspected community-acquired pneumonia. We will send blood cultures. And respiratory infection panel. Start IV antibiotics. Moderate risk for complications. Qualifiers: Pneumonia type: due to Pneumococcus Laterality: bilateral Lung location: unspecified part of lung Qualified Code(s): J13 - Pneumonia due to Streptococcus pneumoniae (2) Elevated troponin Current Visit: Yes Status: Acute Assessment and plan: Likely from demand ischemia.Will follow echo results. Cardiology consult appreciated. (3) Generalized weakness Current Visit: Yes Status: Acute Assessment and plan: Will consult physical therapy (4) CAD (coronary artery disease), [place] coronary artery Current Visit: Yes Status: Chronic Assessment and plan: Continue aspirin, Plavix, beta lyssa and statin. No chest pain at this time. Qualifiers: [place] vs. transplanted heart: [place] heart Associated angina: angina presence unspecified Qualified Code(s): I25.10 - Atherosclerotic heart disease of [place] coronary artery without angina pectoris - Subjective Interval history: Patient denies any complaints at this time. Appears comfortable. No chest pain. No shortness of breath. Denies any cough or sputum production. - Constitutional Vitals: Temp Pulse Resp BP Pulse Ox 97.6 F 97 18 114/69 97 12/28/16 12:09 12/28/16 12:09 12/28/16 12:09 12/28/16 12:09 12/28/16 12:09 General appearance: Present: cooperative, A&O X 2, mild distress, obese. Absent : answers questions appropriately - Respiratory Respiratory exam: Present: CTAB, rhonchi. Absent: accessory muscle use, rales, wheezes - Cardiovascular Cardiovascular exam: Present: RRR, +S1, +S2. Absent: diastolic murmur, gallop, rubs, systolic murmur - GI/Abdominal GI/Abdominal exam: Present: normal bowel sounds, soft, no peritoneal signs. Absent: distended, tenderness - Extremities Exam Extremities exam: Present: warm, radial pulses palpable and symetrical. Absent : calf tenderness, cyanotic, pedal edema - Neurological Exam Neurological exam: Present: alert, no focal deficits. Absent: facial droop, speech deficit - Skin Skin exam: Present: dry, intact Internal Medicine: Result - Labs CBC & Chem 7: 12/28/16 02:09 12/28/16 02:09 Labs: Short CBC 12/28/16 Range/Units 02:09 WBC 18.3 H (4.3-11.1) K/mcL Hgb 10.2 L (12.9-16.9) g/dL Hct 31.9 L (37.5-50.1) % Plt Count 293 (140-400) K/mcL Neutrophils # 13.6 H (1.6-8.9) K/mcL BMP 12/28/16 02:09 Sodium 139 Potassium 4.5 Chloride 107 Carbon Dioxide 26 BUN 14 Creatinine 1.08 Glucose 118 H Calcium 9.6 Cardiac Enzymes 12/28/16 12/28/16 12/28/16 Range/Units 02:09 06:39 14:39 Troponin I 0.11 H* 0.09 H* 0.09 H* (0-0.03) ng/mL Liver Function 12/28/16 Range/Units 02:09 Total Bilirubin 1.0 (0.2-1.2) mg/dL AST 40 H (5-34) Units/L ALT 39 (0-55) Units/L Alkaline Phosphatase 105 (38-126) Units/L Albumin 2.5 L (3.5-5.0) g/dL - ABG Interpretation ABG results: PT/INR, D-dimer PT 14.8 Seconds (9.4-12.1) H 12/28/16 02:09 - Impressions Impressions Chest X-Ray 12/28/16 07:32 IMPRESSION: Bilateral airspace disease with small right-sided pleural effusion, either due to pneumonia or pulmonary edema D/ / Edgardo Tong MD / Edgardo Tong MD Interpreting Provider: Edgardo Tong MD Consult Discharge Plan - Plan [facility]errals: [facility] [Primary Care Provider] - - Attending Attestation This document has been at least partially created by [email or web address] recognition technology by Dr. Borrego. Errors in grammar, wording or other phrases may exist. If errors are found after the documentation is signed, they will be addressed individually in the addendum section of this document when appropriate.
--- NOTE | 2016-12-28 16:52 | ECHO - Doppler Report ---
Echocardiogram Name: Edgardo Raman Date of Study: 12/28/2016 Date: 1935 Ht: 69.0 in Medical Record#: [id number] Age: 81 Wt: 180.0 lb Gender: Male BSA: 1.98 Order #: [id number] Location: [facility] Room #: 2A26 Reading Physician: Aleksey Block MD, [facility] Professor Of History: Feliberto Soto RN Ordering Physician: Jl Dao MD Primary Physician: [facility] Indications: Acute Coronary Syndrome Impressions: Atrial fibrillation with RVR. Mild-moderate left ventricular systolic dysfunction, LVEF 40%. There are regional wall motion abnormalities, see diagram below. Mild-moderate concentric left ventricular hypertrophy. Indeterminate diastolic function due to atrial fibrillation. Right ventricle was not well visualized. Appears normal in size. Probable mild RV hypokinesis. Moderately dilated left atrium. Mild aortic regurgitation. Mild mitral regurgitation. No evidence of pulmonary hypertension. Left Ventricular Wall Motion: Rest Echo Findings The mid inferior, basal inferior, basal inferior septal, mid inferior lateral and basal inferior lateral gonzalez were hypokinetic. All other wall segments showed normal motion. Findings: Study Quality * Technically adequate exam. ECG Findings * Atrial fibrillation with RVR. Left Ventricle * Mild-moderate left ventricular systolic dysfunction, LVEF 40%. There are regional wall motion abnormalities, see diagram below. * Normal LV chamber size. * Mild-moderate concentric left ventricular hypertrophy. * Indeterminate diastolic function due to atrial fibrillation. Right Ventricle * Right ventricle was not well visualized. Appears normal in size. Probable mild RV hypokinesis. Left Atrium * Moderately dilated left atrium. Right Atrium * Normal right atrial size. Aorta * Normally sized aortic root. Pericardium * There is no pericardial effusion present. IVC * The IVC is not well evaluated. Aortic Valve * Trileaflet aortic valve. * Mildly sclerotic aortic valve leaflets. * No aortic stenosis. * Mild aortic regurgitation. Mitral Valve * Mild mitral annular calcification * Mildly thickened mitral valve leaflets. * No mitral stenosis. * Mild mitral regurgitation. Tricuspid Valve * Normal tricuspid valve structure. * No tricuspid stenosis. * Trace tricuspid regurgitation. * No evidence of pulmonary hypertension. Pulmonic Valve * Pulmonic valve not well visualized. * No pulmonic stenosis. * No pulmonic regurgitation. Measurements: BP: 125/ 65 2D Normal Values RVIDd: 3.40 cm IVSd: 1.40 cm 0.6 - 1.0 cm LVIDd: 5.20 cm 3.7 - 5.6 cm LVPWd: 1.20 cm 0.6 - 1.1 cm LVIDs: 4.00 cm 1.5 - 3.6 cm AO: 3.40 cm < 4.0 cm LA: 3.40 cm 2.0 - 4.0cm LA volume: 80 Tricuspid Valve TV Regurg Peak Grad: 25.00mmHg TV Regurg Peak Drew: 2.48m/sec Updated by Aleksey Block MD, [facility] on 12/28/2016 4:48:08 PM electronically signed on 12/28/2016 4:49:11 PM with status of Final Wall Motion So: 1=Normal, 2=Hypokinesis, 3=Akinesis, 4=Dyskinesis, 5=Aneurysmal, 6=Hyperkinetic, X=Not Visualized (Blank)=Missing
--- NOTE | 2016-12-28 20:00 | Electrocardiograph Report ---
[address] [address] Test Date: 2016-12-27 Pat Name: Edgardo Raman Department: 104 Room: 2A Gender: M Veneer Splicer: : 1935 Requested By: Nini Borrego Order Number: [id number] Reading MD: Toby Saucedo Measurements Intervals [place] Rate: 106 P: 110 [place]: 173 QRS: -1 QRSD: 97 T: 74 QT: 340 QTc: 402 Interpretive Statements SINUS TACHYCARDIA WITH OCCASIONAL VENTRICULAR PREMATURE COMPLEXES MINIMAL ST DEPRESSION ABNORMAL RHYTHM ECG Electronically Signed On 12-28-2016 19:59:04 EST by Toby Saucedo
[2016-12-28] MEDS: traZODone 50 MG TABLET PO SCH (21:13)
[2016-12-28] MEDS: *HR* Heparin 5,000 UNIT/ML VIAL SQ SCH (21:13)
[2016-12-29] MEDS: Bumetanide 1 MG/4 ML VIAL IVP SCH ×2 (05:51→17:57)
[2016-12-29] MEDS: *HR* Heparin 5,000 UNIT/ML VIAL SQ SCH ×2 (05:56→17:59)
[2016-12-29 06:18] LABS: Basophils # 0.1 K/mcL (0.0-0.2); Basophils % 0.4 %; Eosinophils # 1.3 K/mcL (0.0-0.6); Eosinophils % 8.1 %; Hemoglobin 10.1 g/dL (12.9-16.9); Immature Granulocytes % 1.7 % (0-4); Lymphocytes # 1.6 K/mcL (0.6-4.6); Lymphocytes % 9.9 %; Mean Corpuscular HGB Conc 32.6 g/dL (31.6-35.5); Mean Corpuscular Hemoglobin 30.7 pg (28.0-33.3); Mean Corpuscular Volume 94.2 fL (83.0-100.0); Mean Platelet Volume 11.2 fL (9.4-12.4); Monocytes # 1.4 K/mcL (0.0-1.3); Monocytes % 8.5 %; Neutrophils # 11.9 K/mcL (1.6-8.9); Nucleated Red Blood Cells 0.1 /100 WBC (0); Platelet Count 301 K/mcL (140-400); Red Blood Count 3.29 M/mcL (4.19-5.50); Red Cell Distribution Width 16.3 % (11.5-14.5); Segmented Neutrophils % 71.4 %
[2016-12-29 06:27] LABS: Calcium 9.5 mg/dL (8.6-10.8); Potassium 3.8 mEq/L (3.5-4.5)
[2016-12-29] MEDS: Levothyroxine 25 MCG TABLET PO SCH (09:26)
[2016-12-29] MEDS: Aspirin Enteric Coated 81 MG Tablet PO SCH (09:27)
[2016-12-29] MEDS: Finasteride 5 MG TABLET PO SCH (09:27)
[2016-12-29] MEDS: Piperacillin/Tazobactam 3.375 GM in D5% in Water (Mini-Bag+) 100 ML IVPB SCH ×3 (09:27→23:45)
[2016-12-29] MEDS: Metoprolol XL (24 HR) Succ 50 MG TAB.ER.24H PO SCH (09:27)
[2016-12-29] MEDS: Artificial Tears SOLN 15 ML BOTTLE BOTH EYES SCH ×4 (09:28→20:35)
--- NOTE | 2016-12-29 09:28 | Cardiology Progress Note ---
Addendum entered and electronically signed by Torsten Rodriguez DO 12/29/16 15: 07: Assessment and plan for Atrial Fibrillation Patient has CHADs2 Score of 5, and CHADs-Vas score of 7. In addition, patient has bleeding risk score of high risk. Therefore we will not begin any anti- coagulation therapy other than Daily ASA. Original Note: <Torsten Rodriguez - Last Filed: 12/29/16 11:48> Date of Encounter: 12/29/16 Time of Encounter: 09:25 Assessment and Plan (1) Elevated troponin Current Visit: Yes Status: Acute Cardiac enzymes stable With patient's elevation in kidney function, he is not a current cath candidate Patient on correct medications at this this time for Systolic failure. Awaiting results about patient's EF [facility] the [facility] to determine if this 40% is new. (2) Generalized weakness Current Visit: Yes Status: Acute Does not appear to be in overt failure. No dyspnea and clear lungs to auscultation without pitting edema. (3) CAD (coronary artery disease), [place] coronary artery Current Visit: Yes Status: Chronic Qualifiers: [place] vs. transplanted heart: [place] heart Associated angina: angina presence unspecified Qualified Code(s): I25.10 - Atherosclerotic heart disease of [place] coronary artery without angina pectoris (4) CVA, old, aphasia Current Visit: Yes Status: Chronic Baseline deficits making communication difficult at times thus history is mildly difficult to assess. (5) Hx of CABG Current Visit: Yes Status: Chronic Unknown when according to patient history. We will obtain [facility] records. Discussion w patient/family: The assessment and plan as outlined above was discussed with the patient and/or family members who expressed understanding and agreement. All questions were answered. Thank you for involving us in the care of your patient. Please call with any questions. Subjective Principal diagnosis: Elevated troponin Interval history: Patient's echo revealed an EF of 40%. Noted to be in Afib with RVR. Kidney function worsened overnight. Patient has no complaints. Objective General: Conversant, No Apparent Distress HEENT: Normocephaly, Mucus Membranes Moist Neck: No JVD Cardiac: Normal S1 and S2, Other (Intermittent arhythmia) Lungs: Other (coarse breath sounds bilaterally) Neuro: Alert and responsive, Other (baseline deficits) Abdomen: Soft, Non-Tender Skin: No rashes noted on visualized skin Musculoskeletal: No Chest Wall Tenderness Extremities: No Clubbing, No Cyanosis, No Edema Results 12/29/16 05:00 12/29/16 05:00 Lab Results 12/28/16 12/29/16 12/29/16 14:39 05:00 05:00 WBC 16.6 H Hgb 10.1 L Hct 31.0 L Plt Count 301 Sodium 140 Potassium 3.8 Chloride 102 Carbon Dioxide 25 BUN 25 D Creatinine 1.88 H D Glucose 97 Calcium 9.5 Troponin I 0.09 H* - Imaging and Cardiology Echo: report reviewed Consult Discharge Plan - Plan Referrals: [facility],PCP [Primary Care Provider] - (left message [facility] team..12/29/2016) <Nano Lara - Last Filed: 12/29/16 16:09> Date of Encounter: 12/29/16 Assessment and Plan Discussion w patient/family: I examined this patient and my medical decision-making was reviewed with the CLINICAL TRIALS DATA COORDINATOR/PA/Advanced Practice Nurse/Resident Physician. I agree with the documented findings, disposition and treatment plan. Mr. Raman initially presented for weakness. He was found to have mild, flat and adynamic troponin elevation. Echo demonstrated LV systolic dysfunction, EF 40%. When compared to [place] records (EF 35-40%), there has been no significant change. He has no particular complaints. He is not volume overloaded on exam. No further cardiac testing is warranted. In regards to the presence of AF, he was not on full anticoagulation when reviewing [facility] records. His CHADS score is elevated but he also is at high risk for bleeding. We recommend aspirin at this time. He should follow up with the [facility]iology for further evaluation and recommendations. We will sign off. Please call with questions. Objective Vital Signs, Last 4 Hours Temp Pulse Resp BP Pulse Ox 12/29/16 12:37 97.5 F L 99 20 105/64 93 L Results 12/29/16 05:00 12/29/16 05:00 Lab Results 12/29/16 12/29/16 05:00 05:00 WBC 16.6 H Hgb 10.1 L Hct 31.0 L Plt Count 301 Sodium 140 Potassium 3.8 Chloride 102 Carbon Dioxide 25 BUN 25 D Creatinine 1.88 H D Glucose 97 Calcium 9.5
[2016-12-29 11:02] LABS: Adenovirus Not Detected (Not Detect); Bordetella Pertussis Not Detected (Not Detect); Chlamydophila pneumoniae Not Detected (Not Detect); Coronavirus 229E Not Detected (Not Detect); Coronavirus HKU1 Not Detected (Not Detect); Coronavirus NL63 Not Detected (Not Detect); Coronavirus OC43 Not Detected (Not Detect); Human Metapneumovirus Not Detected (Not Detect); Human Rhinovirus/Enterovirus Not Detected (Not Detect); Influenza A Subtype 2009 H1 Not Detected (Not Detect); Influenza A Untypeable Not Detected (Not Detect); Influenza B Not Detected (Not Detect); Mycoplasma pneumoniae Not Detected (Not Detect); Parainfluenza Virus 1 Not Detected (Not Detect); Parainfluenza Virus 2 Not Detected (Not Detect); Parainfluenza Virus 3 Not Detected (Not Detect); Parainfluenza Virus 4 Not Detected (Not Detect); Respiratory Syncytial Virus Not Detected (Not Detect)
[2016-12-29] MEDS: 0.9 % Sodium Chloride 1,000 ML IVC SCH ×2 (11:54→22:16)
--- NOTE | 2016-12-29 12:02 | Internal Med Progress Note ---
Date of Encounter: 12/29/16 Time of Encounter: 10:50 - Assessment and plan (1) Pneumonia Current Visit: Yes Status: Suspected Assessment and plan: Blood cultures are so far negative. WBC count is improving. Continue Zosyn. Respiratory panel was negative. Moderate risk for complications. Qualifiers: Pneumonia type: due to Pneumococcus Laterality: bilateral Lung location: unspecified part of lung Qualified Code(s): J13 - Pneumonia due to Streptococcus pneumoniae (2) Elevated troponin Current Visit: Yes Status: Acute Assessment and plan: Likely from demand ischemia. Cardiology following. 2-D echocardiogram shows hypokinetic gonzalez with EF of 40%. Obtain records from [place] to compare with previous echocardiograms. Patient currently not having any chest pain. (3) Generalized weakness Current Visit: Yes Status: Acute Assessment and plan: Evaluated by physical therapy. Recommend home health. mud car worker notified. (4) CAD (coronary artery disease), [place] coronary artery Current Visit: Yes Status: Chronic Assessment and plan: Continue aspirin, Plavix and statin and beta lyssa Qualifiers: [place] vs. transplanted heart: [place] heart Associated angina: angina presence unspecified Qualified Code(s): I25.10 - Atherosclerotic heart disease of [place] coronary artery without angina pectoris (5) Acute renal injury Current Visit: Yes Status: Acute Assessment and plan: Creatinine is slightly elevated today. Likely from pneumonia and dehydration with resultant ATN. Will hydrate intravenously. Follow renal function and input and output closely. Avoid nephrotoxic agents. Will hold losartan. - Subjective Interval history: Patient is doing well. Denies any complaints at this time. No chest pain. No shortness of breath. No abdominal pain or diarrhea. - Constitutional Vitals: Temp Pulse Resp BP Pulse Ox 98.3 F 98 20 118/69 96 12/29/16 09:10 12/29/16 09:10 12/29/16 09:10 12/29/16 09:10 12/29/16 09:42 General appearance: Present: cooperative, A&O X 2, mild distress, obese. Absent : answers questions appropriately - Respiratory Respiratory exam: Present: CTAB. Absent: accessory muscle use, rales, rhonchi, wheezes - Cardiovascular Cardiovascular exam: Present: RRR, +S1, +S2. Absent: diastolic murmur, gallop, rubs, systolic murmur - Extremities Exam Extremities exam: Present: warm, radial pulses palpable and symetrical. Absent : calf tenderness, cyanotic, pedal edema - Neurological Exam Neurological exam: Present: alert, no focal deficits. Absent: facial droop, speech deficit - Skin Skin exam: Present: dry, intact Internal Medicine: Result - Labs CBC & Chem 7: 12/29/16 05:00 12/29/16 05:00 Labs: Short CBC 12/29/16 Range/Units 05:00 WBC 16.6 H (4.3-11.1) K/mcL Hgb 10.1 L (12.9-16.9) g/dL Hct 31.0 L (37.5-50.1) % Plt Count 301 (140-400) K/mcL Neutrophils # 11.9 H (1.6-8.9) K/mcL BMP 12/29/16 05:00 Sodium 140 Potassium 3.8 Chloride 102 Carbon Dioxide 25 BUN 25 D Creatinine 1.88 H D Glucose 97 Calcium 9.5 Cardiac Enzymes 12/28/16 Range/Units 14:39 Troponin I 0.09 H* (0-0.03) ng/mL - ABG Interpretation ABG results: PT/INR, D-dimer PT 14.8 Seconds (9.4-12.1) H 12/28/16 02:09 Consult Discharge Plan - Plan Referrals: [facility],PC[facility] [Primary Care Provider] - - Attending Attestation This document has been at least partially created by [email or web address] recognition technology by Dr. Borrego. Errors in grammar, wording or other phrases may exist. If errors are found after the documentation is signed, they will be addressed individually in the addendum section of this document when appropriate.
[2016-12-29] MEDS: traZODone 50 MG TABLET PO SCH (20:35)
[2016-12-30 06:01] LABS: Basophils # 0.1 K/mcL (0.0-0.2); Basophils % 0.5 %; Eosinophils # 1.1 K/mcL (0.0-0.6); Eosinophils % 8.9 %; Hematocrit 29.9 % (37.5-50.1); Hemoglobin 9.5 g/dL (12.9-16.9); Immature Granulocytes % 1.6 % (0-4); Lymphocytes # 1.3 K/mcL (0.6-4.6); Mean Corpuscular HGB Conc 31.8 g/dL (31.6-35.5); Mean Corpuscular Hemoglobin 30.4 pg (28.0-33.3); Mean Corpuscular Volume 95.8 fL (83.0-100.0); Mean Platelet Volume 11.1 fL (9.4-12.4); Monocytes # 1.1 K/mcL (0.0-1.3); Monocytes % 9.1 %; Neutrophils # 8.4 K/mcL (1.6-8.9); Platelet Count 270 K/mcL (140-400); Red Blood Count 3.12 M/mcL (4.19-5.50); Red Cell Distribution Width 16.3 % (11.5-14.5); Segmented Neutrophils % 68.9 %
[2016-12-30] MEDS: *HR* Heparin 5,000 UNIT/ML VIAL SQ SCH ×2 (06:08→18:38)
[2016-12-30] MEDS: Bumetanide 1 MG/4 ML VIAL IVP SCH ×2 (06:08→17:25)
[2016-12-30 06:18] LABS: Calcium 8.7 mg/dL (8.6-10.8)
[2016-12-30] MEDS: 0.9 % Sodium Chloride 1,000 ML IVC SCH ×2 (08:23→18:38)
[2016-12-30] MEDS: Piperacillin/Tazobactam 3.375 GM in D5% in Water (Mini-Bag+) 100 ML IVPB SCH ×3 (08:25→23:13)
[2016-12-30] MEDS: Levothyroxine 25 MCG TABLET PO SCH (08:26)
[2016-12-30] MEDS: Metoprolol XL (24 HR) Succ 50 MG TAB.ER.24H PO SCH (08:26)
[2016-12-30] MEDS: Finasteride 5 MG TABLET PO SCH (08:26)
[2016-12-30] MEDS: Aspirin Enteric Coated 81 MG Tablet PO SCH (08:26)
[2016-12-30] MEDS: Artificial Tears SOLN 15 ML BOTTLE BOTH EYES SCH ×3 (08:29→17:29)
--- NOTE | 2016-12-30 14:46 | Internal Med Progress Note ---
Date of Encounter: 12/30/16 Time of Encounter: 11:10 - Assessment and plan (1) Pneumonia Current Visit: Yes Status: Suspected Assessment and plan: WBC count continues to improve. Clinically getting better. Still requiring supplemental oxygen. We will order incentive spirometry. If he does not respond to this treatment measures, he may require home oxygen. Qualifiers: Pneumonia type: due to Pneumococcus Laterality: bilateral Lung location: unspecified part of lung Qualified Code(s): J13 - Pneumonia due to Streptococcus pneumoniae (2) Elevated troponin Current Visit: Yes Status: Acute (3) Generalized weakness Current Visit: Yes Status: Acute Assessment and plan: Continue PTOT. Home health at discharge. (4) CAD (coronary artery disease), [place] coronary artery Current Visit: Yes Status: Chronic Assessment and plan: Continue aspirin, Plavix and statin Qualifiers: [place] vs. transplanted heart: [place] heart Associated angina: angina presence unspecified Qualified Code(s): I25.10 - Atherosclerotic heart disease of [place] coronary artery without angina pectoris (5) Acute renal injury Current Visit: Yes Status: Acute Assessment and plan: Improving - Subjective Interval history: Patient is doing well. Denies any complaints at this time. However he continues to require supplemental oxygen. Denies any chest pain. - Constitutional Vitals: Temp Pulse Resp BP Pulse Ox 98.1 F 90 22 95/61 96 12/30/16 12:08 12/30/16 12:08 12/30/16 12:08 12/30/16 12:08 12/30/16 12:08 General appearance: Present: cooperative, A&O X 2, mild distress, obese, answers questions appropriately - Respiratory Respiratory exam: Present: CTAB. Absent: accessory muscle use, rales, rhonchi, wheezes - Cardiovascular Cardiovascular exam: Present: RRR, +S1, +S2. Absent: diastolic murmur, gallop, rubs, systolic murmur - GI/Abdominal GI/Abdominal exam: Present: normal bowel sounds, soft, no peritoneal signs. Absent: distended, tenderness - Extremities Exam Extremities exam: Present: warm, radial pulses palpable and symetrical. Absent : calf tenderness, cyanotic, pedal edema - Neurological Exam Neurological exam: Present: alert, no focal deficits. Absent: facial droop, speech deficit Internal Medicine: Result - Labs CBC & Chem 7: 12/30/16 05:32 12/30/16 05:32 Labs: Short CBC 12/30/16 Range/Units 05:32 WBC 12.1 H (4.3-11.1) K/mcL Hgb 9.5 L (12.9-16.9) g/dL Hct 29.9 L (37.5-50.1) % Plt Count 270 (140-400) K/mcL Neutrophils # 8.4 (1.6-8.9) K/mcL BMP 12/30/16 05:32 Sodium 141 Potassium 4.0 Chloride 107 Carbon Dioxide 25 BUN 25 Creatinine 1.59 H Glucose 100 H Calcium 8.7 - ABG Interpretation ABG results: PT/INR, D-dimer PT 14.8 Seconds (9.4-12.1) H 12/28/16 02:09 - VTE Documentation of Mechanical Device: Graduated compression elastic hosiery Consult Discharge Plan - Plan [facility]errals: [facility] [Primary Care Provider] - (left message [facility] team..12/29/2016) - Attending Attestation This document has been at least partially created by [employer] recognition technology by Dr. Borrego. Errors in grammar, wording or other phrases may exist. If errors are found after the documentation is signed, they will be addressed individually in the addendum section of this document when appropriate.
[2016-12-30] MEDS: traZODone 50 MG TABLET PO SCH (23:13)
[2016-12-31] MEDS: Bumetanide 1 MG/4 ML VIAL IVP SCH ×2 (07:21→17:17)
[2016-12-31] MEDS: Levothyroxine 25 MCG TABLET PO SCH (08:38)
[2016-12-31] MEDS: Piperacillin/Tazobactam 3.375 GM in D5% in Water (Mini-Bag+) 100 ML IVPB SCH ×2 (08:38→17:16)
[2016-12-31] MEDS: Aspirin Enteric Coated 81 MG Tablet PO SCH (08:38)
[2016-12-31] MEDS: Finasteride 5 MG TABLET PO SCH (08:38)
[2016-12-31 08:49] LABS: Bilirubin,Urine Negative (Negative); Blood,Urine Negative (Negative); Clarity,Urine Clear (Clear); Color,Urine Yellow (Yellow); Glucose,Urine (UA) Normal (Normal); Ketones,Urine Negative (Negative); Leukocyte Esterase,Urine Negative (Negative); Nitrite,Urine Negative (Negative); Protein,Urine Negative (Neg-Trace); Specific Gravity,Urine 1.011 (1.010-1.025); Urobilinogen,Urine Normal (Normal)
[2016-12-31] MEDS: Artificial Tears SOLN 15 ML BOTTLE BOTH EYES SCH ×4 (08:53→20:36)
[2016-12-31] MEDS: Metoprolol XL (24 HR) Succ 50 MG TAB.ER.24H PO SCH (08:54)
[2016-12-31] MEDS: *HR* Heparin 5,000 UNIT/ML VIAL SQ SCH ×2 (08:57→20:37)
--- NOTE | 2016-12-31 14:23 | Discharge Summary ---
Date of Encounter: 12/31/16 Time of Encounter: 14:24 - Discharge Diagnosis (1) Pneumonia Priority: Primary Status: Acute Qualifiers: Pneumonia type: due to unspecified organism Laterality: bilateral Lung location: unspecified part of lung Qualified Code(s): J18.9 - Pneumonia, unspecified organism (2) Elevated troponin Priority: Secondary Status: Acute (3) Generalized weakness Priority: Secondary Status: Acute (4) CAD (coronary artery disease), [place] coronary artery Priority: Secondary Status: Chronic Qualifiers: [place] vs. transplanted heart: [place] heart Associated angina: angina presence unspecified Qualified Code(s): I25.10 - Atherosclerotic heart disease of [place] coronary artery without angina pectoris (5) Acute renal injury Priority: Secondary Status: Acute - Discharge Medications Prescriptions: Amoxicillin/Clavulanate [Augmentin] 875 mg PO BIDWM #20 tablet Aspirin Enteric Coated [Aspirin EC] 81 mg PO DAILY #30 tablet. Doxycycline Hyclate 100 mg PO BID #20 tablet. Home Medications: Alfuzosin HCl [Uroxatral] 10 mg PO DAILY 12/27/16 [History] Carboxymethylcellulose Sodium [Refresh Liquigel] 1 drop BOTH EYES QID 12/27/16 [ History] Cholecalciferol (D-3) [Vitamin D] 1,000 unit PO DAILY 12/27/16 [History] Clopidogrel [Plavix] 75 mg PO DAILY 12/27/16 [History] Finasteride [Proscar] 5 mg PO DAILY 12/27/16 [History] Lactose-Reduced Food [Ensure Plus] 1 bottle PO BID 12/27/16 [History] Levothyroxine [Synthroid] 37.5 mcg PO QAM 12/27/16 [History] Metoprolol XL (24 HR) Succ [Toprol Xl] 50 mg PO DAILY 12/27/16 [History] Multivitamin [Multi-Day Vitamins] 1 each PO DAILY 12/27/16 [History] Ranitidine HCl [Zantac] 150 mg PO DAILY PRN 12/27/16 [History] Sennosides/Docusate Sodium [Senna Plus] 1 each PO BID PRN 12/27/16 [History] Sertraline [Zoloft] 200 mg PO DAILY 12/27/16 [History] Simvastatin [Zocor] 20 mg PO HS 12/27/16 [History] Trazodone HCl 100 mg PO HS 12/27/16 [History] Xanthan Gum [Simplythick] 15 gm PO AD 12/27/16 [History] Amoxicillin/Clavulanate [Augmentin] 875 mg PO BIDWM #20 tablet 12/31/16 [Rx] Aspirin Enteric Coated [Aspirin EC] 81 mg PO DAILY #30 tablet. 12/31/16 [Rx] Doxycycline Hyclate 100 mg PO BID #20 tablet. 01/01/17 [Rx] Allergies/Adverse Reactions: Allergies cephalexin Allergy (Verified 12/27/16 20:56) Hives ciprofloxacin [From Cipro] Allergy (Verified 12/27/16 20:56) Hives codeine Allergy (Verified 12/27/16 20:56) Hives Procedures/tests Complete & Pending: Procedures Performed prior 72 hours Category Date Time Status ECG 12 lead ECG [ECG] Routine Y 12/29/16 07:00 Ordered Date of admission: 12/27/16 22:18 [facility] physician: [facility] Consults: 12/28/16 00:59 Consult to Occupational Therapy [CONS] Routine Comment: Evaluate, develop and implement POC Consult to Physical Therapy [CONS] Routine Comment: Evaluate, develop and implement POC 12/28/16 01:02 Consult to Cardiac Rehabilitation-Phase1 [CONS] Routine Comment: Reason for Consult: AMI Call Completed: Yes Consult to Nurse Navigator [CONS] Routine Comment: 12/28/16 07:33 Consult to Cardiology [CONS] Routine Comment: Consulting Provider: Cardiology [place] Reason for Consult: Elevated troponins/ abnormal ekg Time Notified: 07:33 Call Completed: Yes 12/29/16 13:57 consult to joint machine operator [Consult to Nutrition] [CONS] Routine Comment: Consulting Provider: NUTRITION Reason for Dietary Consult: Supplemental Nutrition Other:: pt drinks 2 cans ensure at home daily. Discharging clinician: Nini Borrego Anticipated date of discharge: 01/02/17 - Patient Status Disposition: Home, Self-Care Condition: Good Functional capacity at discharge: independent ambulation Overall status at discharge: patient is progressing back to baseline - Discharge Instructions Follow Up With: [facility] [Primary Care Provider] - (left message [facility] team..12/29/2016) - Diet and Activity Activity: as per physical therapy, wear oxygen at all times Diet: low fat, low cholesterol, low salt diet Hospital course: Mr. Raman is a 81 year old male patient with history of coronary artery disease who was admitted here with generalized weakness, elevated troponin and hypoxia. He was diagnosed with pneumonia based on his chest x-ray findings and leukocytosis. He was treated treated for this with IV antibiotics. On presentation his troponins were slightly elevated. Cardiology was consulted. This troponin elevation was related to be due to demand ischemia. His troponins have since trended down. He did not have any chest pain. The 2-D echocardiogram done here showed EF of 40% with some regional wall motion abnormalities. Patient was on Plavix and statin and beta lyssa. He was also in atrial fibrillation and as such cardiology recommended aspirin. Patient has not been started on anticoagulation as he has chronic anemia and is an elderly patient with high fall risk. He can follow With cardiology for further evaluation and recommendations. Patient has remained hypoxic despite this treatment measures and will require home oxygen. This is currently being arranged. Patient will be stable for discharge once home oxygen is arranged. He will be discharged on treatment for pneumonia with Augmentin and doxycycline. - Time Spent with Patient Total time spent providing and/or coordinating discharge services: Greater than 30 minutes (45 min) - Constitutional Vitals: Temp Pulse Resp BP Pulse Ox 98.7 F 90 20 95/60 95 12/31/16 11:16 12/31/16 11:16 12/31/16 11:16 12/31/16 11:16 12/31/16 11:16 General appearance: Present: cooperative, A&O X 2, mild distress, obese, answers questions appropriately - Respiratory Respiratory exam: Present: rhonchi. Absent: accessory muscle use, rales, wheezes - Cardiovascular Cardiovascular exam: Present: RRR, +S1, +S2. Absent: diastolic murmur, gallop, rubs, systolic murmur - GI/Abdominal GI/Abdominal exam: Present: normal bowel sounds, soft, no peritoneal signs. Absent: distended, tenderness - Extremities Exam Extremities exam: Present: warm, radial pulses palpable and symetrical. Absent : calf tenderness, cyanotic, pedal edema - VTE Documentation of Mechanical Device: Graduated compression elastic hosiery - Attending Attestation This document has been at least partially created by [employer] recognition technology by Dr. Borrego. Errors in grammar, wording or other phrases may exist. If errors are found after the documentation is signed, they will be addressed individually in the addendum section of this document when appropriate.
[2016-12-31] MEDS: 0.9 % Sodium Chloride 1,000 ML IVC SCH ×2 (15:06)
[2016-12-31] MEDS: traZODone 50 MG TABLET PO SCH (20:36)
[2017-01-01] MEDS: Piperacillin/Tazobactam 3.375 GM in D5% in Water (Mini-Bag+) 100 ML IVPB SCH ×2 (01:32→09:14)
[2017-01-01] MEDS: 0.9 % Sodium Chloride 1,000 ML IVC SCH (04:13)
[2017-01-01] MEDS: Artificial Tears SOLN 15 ML BOTTLE BOTH EYES SCH ×5 (09:13→20:36)
[2017-01-01] MEDS: Bumetanide 1 MG/4 ML VIAL IVP SCH (09:13)
[2017-01-01] MEDS: Finasteride 5 MG TABLET PO SCH (09:14)
[2017-01-01] MEDS: Metoprolol XL (24 HR) Succ 50 MG TAB.ER.24H PO SCH (09:14)
[2017-01-01] MEDS: Levothyroxine 25 MCG TABLET PO SCH (09:14)
[2017-01-01] MEDS: Aspirin Enteric Coated 81 MG Tablet PO SCH (09:14)
[2017-01-01] MEDS: *HR* Heparin 5,000 UNIT/ML VIAL SQ SCH ×2 (09:15→20:36)
[2017-01-01] MEDS ORDERED: Bumetanide 1 MG/4 ML VIAL IVP ONE (09:25)
--- NOTE | 2017-01-01 13:34 | Internal Med Progress Note ---
Date of Encounter: 01/01/17 Time of Encounter: 13:32 - Assessment and plan (1) Pneumonia Current Visit: Yes Status: Acute Assessment and plan: Blood cultures have remained negative. Placed on Augmentin and doxycycline from today. CT of the chest done yesterday shows emphysematous changes per patient does have underlying COPD. Qualified for home oxygen and this is in the process of being arranged. Qualifiers: Pneumonia type: due to unspecified organism Laterality: bilateral Lung location: unspecified part of lung Qualified Code(s): J18.9 - Pneumonia, unspecified organism (2) Elevated troponin Current Visit: Yes Status: Acute Assessment and plan: From demand ischemia. (3) Generalized weakness Current Visit: Yes Status: Acute Assessment and plan: Improved. Home health and PT. (4) CAD (coronary artery disease), [place] coronary artery Current Visit: Yes Status: Chronic Assessment and plan: On aspirin, Plavix, statin and beta lyssa. CT also showed some pulmonary edema. Patient given one dose of IV Bumex 1 mg. Qualifiers: [place] vs. transplanted heart: [place] heart Associated angina: angina presence unspecified Qualified Code(s): I25.10 - Atherosclerotic heart disease of [place] coronary artery without angina pectoris (5) Acute renal injury Current Visit: Yes Status: Acute Assessment and plan: Improving. (6) Cardiomyopathy Current Visit: Yes Status: Chronic Assessment and plan: CT chest shows changes suggestive of pulmonary edema. On IV Bumex. Also on aspirin, Plavix and beta lyssa. EF 40% with systolic dysfunction. Qualifiers: Cardiomyopathy type: ischemic Qualified Code(s): I25.5 - Ischemic cardiomyopathy - Subjective Interval history: Patient continues to do well. Denies any complaints at this time. Requiring O2 supplementation - Constitutional Vitals: Temp Pulse Resp BP Pulse Ox 98.8 F 112 18 146/65 95 01/01/17 07:04 01/01/17 07:04 01/01/17 07:04 01/01/17 07:04 01/01/17 07:04 General appearance: Present: cooperative, A&O X 2, mild distress, obese, answers questions appropriately - Respiratory Respiratory exam: Present: prolonged expiratory phase, wheezes. Absent: accessory muscle use, rales, rhonchi - Cardiovascular Cardiovascular exam: Present: RRR, +S1, +S2. Absent: diastolic murmur, gallop, rubs, systolic murmur - GI/Abdominal GI/Abdominal exam: Present: normal bowel sounds, soft, no peritoneal signs. Absent: distended, tenderness - Extremities Exam Extremities exam: Present: warm, radial pulses palpable and symetrical. Absent : calf tenderness, cyanotic, pedal edema Internal Medicine: Result - Labs CBC & Chem 7: 12/30/16 05:32 12/30/16 05:32 - ABG Interpretation ABG results: PT/INR, D-dimer PT 14.8 Seconds (9.4-12.1) H 12/28/16 02:09 - Impressions Impressions Chest CT 12/31/16 14:25 IMPRESSION: Interval development of bilateral interstitial lung disease superimposed on underlying COPD with a small right pleural effusion and bibasilar atelectasis. The findings likely relate to pulmonary edema superimposed on COPD. Pneumonia cannot be excluded but thought less likely. Stable mediastinal lymphadenopathy consistent with reactive disease. D/ / 12/31/2016 16:23:24 Berry La MD / cecil Interpreting Provider: Berry La MD - VTE Documentation of Mechanical Device: Graduated compression elastic hosiery Consult Discharge Plan - Plan [facility]errals: [facility] [Primary Care Provider] - (left message [facility] team..12/29/2016) Prescriptions: Amoxicillin/Clavulanate [Augmentin] 875 mg PO BIDWM #20 tablet Aspirin Enteric Coated [Aspirin EC] 81 mg PO DAILY #30 tablet. - Attending Attestation This document has been at least partially created by [employer] recognition technology by Dr. Borrego. Errors in grammar, wording or other phrases may exist. If errors are found after the documentation is signed, they will be addressed individually in the addendum section of this document when appropriate.
[2017-01-01] MEDS: traZODone 50 MG TABLET PO SCH (20:32)
[2017-01-01] MEDS: Doxycycline 100 MG CAPSULE PO SCH (20:32)
[2017-01-02 04:28] VITALS: BP 113/47
[2017-01-02] MEDS: *HR* Heparin 5,000 UNIT/ML VIAL SQ SCH (06:10)
[2017-01-02] MEDS: Doxycycline 100 MG CAPSULE PO SCH (08:14)
[2017-01-02] MEDS: Levothyroxine 25 MCG TABLET PO SCH (08:14)
[2017-01-02] MEDS: Finasteride 5 MG TABLET PO SCH (08:14)
[2017-01-02] MEDS: Aspirin Enteric Coated 81 MG Tablet PO SCH (08:16)
[2017-01-02] MEDS: Metoprolol XL (24 HR) Succ 50 MG TAB.ER.24H PO SCH (08:16)
[2017-01-02] MEDS: Artificial Tears SOLN 15 ML BOTTLE BOTH EYES SCH ×2 (09:43→13:39)
[2017-01-02 14:32] LABS: Basophils # 0.1 K/mcL (0.0-0.2); Basophils % 0.5 %; Eosinophils # 0.8 K/mcL (0.0-0.6); Eosinophils % 6.7 %; Hematocrit 32.6 % (37.5-50.1); Hemoglobin 10.2 g/dL (12.9-16.9); Immature Granulocytes % 0.8 % (0-4); Lymphocytes # 1.5 K/mcL (0.6-4.6); Lymphocytes % 12.8 %; Mean Corpuscular HGB Conc 31.3 g/dL (31.6-35.5); Mean Corpuscular Hemoglobin 29.7 pg (28.0-33.3); Mean Corpuscular Volume 94.8 fL (83.0-100.0); Mean Platelet Volume 10.3 fL (9.4-12.4); Monocytes % 7.9 %; Neutrophils # 8.5 K/mcL (1.6-8.9); Platelet Count 273 K/mcL (140-400); Red Blood Count 3.44 M/mcL (4.19-5.50); Red Cell Distribution Width 16.3 % (11.5-14.5); Segmented Neutrophils % 71.3 %
[2017-01-02 14:44] LABS: BUN/Creatinine Ratio 16 (6-26); Blood Urea Nitrogen 17 mg/dL (8-26); Carbon Dioxide 25 mEq/L (19-29); Chloride 107 mEq/L (98-109); Glucose 124 mg/dL (70-99); Magnesium 1.6 mg/dL (1.6-2.6); Osmolality,Calculated 291 (280-300); Potassium 3.9 mEq/L (3.5-4.5); Sodium 139 mEq/L (136-145); eGFR For African Americans > 60 (> 60); eGFR For Non-African Americans > 60 (> 60)
--- NOTE | 2017-01-02 14:59 | Discharge Summary ---
Date of Encounter: 01/02/17 Time of Encounter: 13:45 - Discharge Diagnosis (1) Acute respiratory failure with hypoxemia Priority: Primary Status: Acute Comments: Secondary to community-acquired pneumonia and acute systolic heart failure. LVEF 40%. Patient completed 6 days of antibiotics inpatient. He received IV bumex for 3 days with clinical improvement of his symptoms. Fluid restriction. daily weight. requiring 2l of oxygen via [place] albuterol nebs prn (2) Pneumonia Priority: Primary Status: Acute Comments: bacterial PNA. Qualifiers: Pneumonia type: due to unspecified organism Laterality: bilateral Lung location: unspecified part of lung Qualified Code(s): J18.9 - Pneumonia, unspecified organism (3) Acute systolic heart failure Priority: Primary Status: Acute Comments: LVEF 40%. plan as above (4) Acute renal injury Priority: Primary Status: Acute Comments: resolved. cardiorenal due to acute HF (5) Atrial fibrillation Priority: Secondary Status: Acute Comments: On toprol XL. CHADs-Vas score of 7 but not candidate for anticoagulation due to high bleeding risk. Qualifiers: Atrial fibrillation type: chronic Qualified Code(s): I48.2 - Chronic atrial fibrillation (6) CAD (coronary artery disease), [place] coronary artery Priority: Secondary Status: Chronic Comments: stable. Qualifiers: [place] vs. 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 Bumetanide [Bumex] 0.5 mg PO BIDDIURETIC #60 tablet Doxycycline Hyclate 100 mg PO BID #3 tablet. Metoprolol XL (24 HR) Succ [Toprol Xl] 75 mg PO DAILY 30 Days Home Medications: Alfuzosin HCl [Uroxatral] 10 mg PO DAILY 12/27/16 [History] Carboxymethylcellulose Sodium [Refresh Liquigel] 1 drop BOTH EYES QID 12/27/16 [ History] Cholecalciferol (D-3) [Vitamin D] 1,000 unit PO DAILY 12/27/16 [History] Clopidogrel [Plavix] 75 mg PO DAILY 12/27/16 [History] Finasteride [Proscar] 5 mg PO DAILY 12/27/16 [History] Lactose-Reduced Food [Ensure Plus] 1 bottle PO BID 12/27/16 [History] Levothyroxine [Synthroid] 37.5 mcg PO QAM 12/27/16 [History] Multivitamin [Multi-Day Vitamins] 1 each PO DAILY 12/27/16 [History] Ranitidine HCl [Zantac] 150 mg PO DAILY PRN 12/27/16 [History] Sennosides/Docusate Sodium [Senna Plus] 1 each PO BID PRN 12/27/16 [History] Sertraline [Zoloft] 200 mg PO DAILY 12/27/16 [History] Simvastatin [Zocor] 20 mg PO HS 12/27/16 [History] Trazodone HCl 100 mg PO HS 12/27/16 [History] Xanthan Gum [Simplythick] 15 gm PO AD 12/27/16 [History] Aspirin Enteric Coated [Aspirin EC] 81 mg PO DAILY #30 tablet. 12/31/16 [Rx] Albuterol Neb [AccuNeb] 0.63 mg IH Q6HR PRN 30 Days 01/02/17 [Rx] Amoxicillin/Clavulanate [Augmentin] 875 mg PO BIDWM #4 tablet 01/02/17 [Rx] Bumetanide [Bumex] 0.5 mg PO BIDDIURETIC #60 tablet 01/02/17 [Rx] Doxycycline Hyclate 100 mg PO BID #3 tablet. 01/02/17 [Rx] Metoprolol XL (24 HR) Succ [Toprol Xl] 75 mg PO DAILY 30 Days 01/02/17 [Rx] Allergies/Adverse Reactions: Allergies cephalexin Allergy (Verified 12/27/16 20:56) Hives ciprofloxacin [From Cipro] Allergy (Verified 12/27/16 20:56) Hives codeine Allergy (Verified 12/27/16 20:56) Hives Procedures/tests Complete & Pending: Procedures Performed prior 72 hours Category Date Time Status CT chest wo con [CT] Routine Cat Scan 12/31/16 14:25 Completed Date of admission: 12/27/16 22:18 [facility] care physician: [facility] Consults: 12/28/16 00:59 Consult to Occupational Therapy [CONS] Routine Comment: Evaluate, develop and implement POC Consult to Physical Therapy [CONS] Routine Comment: Evaluate, develop and implement POC 12/28/16 01:02 Consult to Cardiac Rehabilitation-Phase1 [CONS] Routine Comment: Reason for Consult: AMI Call Completed: Yes Consult to Nurse Navigator [CONS] Routine Comment: 12/28/16 07:33 Consult to Cardiology [CONS] Routine Comment: Consulting Provider: Cardiology [place] Reason for Consult: Elevated troponins/ abnormal ekg Time Notified: 07:33 Call Completed: Yes 12/29/16 13:57 consult to central processing tech [Consult to Nutrition] [CONS] Routine Comment: Consulting Provider: NUTRITION Reason for Dietary Consult: Supplemental Nutrition Other:: pt drinks 2 cans ensure at home daily. 12/31/16 18:43 Consult to Forestry Technical Officer [CONS] Routine Reason for SW Consult: needs home o2 [facility] the [facility] - Patient Status Disposition: Home, Self-Care Condition: Good Functional capacity at discharge: bed bound Overall status at discharge: patient is progressing back to baseline - Discharge Instructions Follow Up With: [facility] [Primary Care Provider] - (Please call [facility] when you are discharged home to make a follow up appointment. [facility] request that patient calls at discharge ) Additional Instructions: daily weight. Call doctor if more than 2 pounds weight in 2 days. - Diet and Activity Activity: resume usual activities as tolerated, wear oxygen at all times (2L NC) Diet: other (Fluid restriction 2 L/day. Mechanically aletered Diet ground meat, nectar thickened diet, Ensure Plus 3 times a day strawberry.) Interval History: Patient has no complaints. no diarrhea. no chest pain. He feels better and is eager to go home. Hospital course: Mr. Raman is a 81 year old male - Time Spent with Patient Total time spent providing and/or coordinating discharge services: - Constitutional Vitals: Temp Pulse Resp BP Pulse Ox 97.7 F 93 16 113/47 96 01/02/17 04:27 01/02/17 04:27 01/02/17 04:27 01/02/17 04:27 01/02/17 08:30 General appearance: Present: cooperative, A&O X 2, pleasant, no acute distress, answers questions appropriately - Eye Eye exam: Present: PERRL, sclera anicteric - Neck Neck exam general surgery: Present: supple, trachea midline. Absent: lymphadenopathy - Respiratory Respiratory exam: Present: CTAB - Cardiovascular Cardiovascular exam: Present: RRR - GI/Abdominal GI/Abdominal exam: Present: normal bowel sounds, soft. Absent: distended, tenderness - Extremities Exam Extremities exam: Present: pedal edema (ankle edema bilaterally) - Back Exam Back exam: Absent: CVA tenderness (L), CVA tenderness (R) - Neurological Exam Neurological exam: Present: alert. Absent: strengths equal and symetr throughout (right-sided hemiparesis) - Skin Skin exam: Present: dry - VTE Documentation of Mechanical Device: Graduated compression elastic hosiery
--- NOTE | 2017-01-02 15:33 | Physician Discharge Referral ---
Home Health/Hosp Referral Info Transfer to: Home Health Attending Provider: shaila Provider in Charge Post Discharge: PCP - Diagnosis (1) Acute respiratory failure with hypoxemia Status: Acute (2) Pneumonia Status: Acute (3) Acute systolic heart failure Status: Acute (4) Acute renal injury Status: Acute (5) Atrial fibrillation Status: Acute (6) CAD (coronary artery disease), [place] coronary artery Status: Chronic (7) CVA, old, aphasia Status: Chronic (8) Elevated troponin Status: Resolved (9) Hx of CABG Status: Chronic - Respiratory Orders Oxygen / L per min (2) Smoking Cessation: Smoking cessation has been advised. For more information, call the [place] Tobacco Quit Line at 8-133-YEIL-NOW. - Diet/Nutrition Diet/Nutrition Orders: Mechanical Soft (fluid restriction 2 L/day. nectar thick liquid, ensure plus tid strawberry) - Activity Activity Orders: Bedrest - Services Needed Following services are medically necessary services: Nursing, Home Health Aide, Physical Therapy, Occupational Therapy Other Treatments: daily weight. check BP daily BMP on 01/04/17 - Transfer Medications Prescriptions: Albuterol Neb [AccuNeb] 0.63 mg IH Q6HR PRN 30 Days PRN Reason: Shortness Of Breath/Wheezing Amoxicillin/Clavulanate [Augmentin] 875 mg PO BIDWM #4 tablet Aspirin Enteric Coated [Aspirin EC] 81 mg PO DAILY #30 tablet. Bumetanide [Bumex] 0.5 mg PO BIDDIURETIC #60 tablet Doxycycline Hyclate 100 mg PO BID #3 tablet. Metoprolol XL (24 HR) Succ [Toprol Xl] 75 mg PO DAILY 30 Days Home Medications: Alfuzosin HCl [Uroxatral] 10 mg PO DAILY 12/27/16 [History] Carboxymethylcellulose Sodium [Refresh Liquigel] 1 drop BOTH EYES QID 12/27/16 [ History] Cholecalciferol (D-3) [Vitamin D] 1,000 unit PO DAILY 12/27/16 [History] Clopidogrel [Plavix] 75 mg PO DAILY 12/27/16 [History] Finasteride [Proscar] 5 mg PO DAILY 12/27/16 [History] Lactose-Reduced Food [Ensure Plus] 1 bottle PO BID 12/27/16 [History] Levothyroxine [Synthroid] 37.5 mcg PO QAM 12/27/16 [History] Multivitamin [Multi-Day Vitamins] 1 each PO DAILY 12/27/16 [History] Ranitidine HCl [Zantac] 150 mg PO DAILY PRN 12/27/16 [History] Sennosides/Docusate Sodium [Senna Plus] 1 each PO BID PRN 12/27/16 [History] Sertraline [Zoloft] 200 mg PO DAILY 12/27/16 [History] Simvastatin [Zocor] 20 mg PO HS 12/27/16 [History] Trazodone HCl 100 mg PO HS 12/27/16 [History] Xanthan Gum [Simplythick] 15 gm PO AD 12/27/16 [History] Aspirin Enteric Coated [Aspirin EC] 81 mg PO DAILY #30 tablet. 12/31/16 [Rx] Albuterol Neb [AccuNeb] 0.63 mg IH Q6HR PRN 30 Days 01/02/17 [Rx] Amoxicillin/Clavulanate [Augmentin] 875 mg PO BIDWM #4 tablet 01/02/17 [Rx] Bumetanide [Bumex] 0.5 mg PO BIDDIURETIC #60 tablet 01/02/17 [Rx] Doxycycline Hyclate 100 mg PO BID #3 tablet. 01/02/17 [Rx] Metoprolol XL (24 HR) Succ [Toprol Xl] 75 mg PO DAILY 30 Days 01/02/17 [Rx] Allergies/Adverse Reactions: Allergies cephalexin Allergy (Verified 12/27/16 20:56) Hives ciprofloxacin [From Cipro] Allergy (Verified 12/27/16 20:56) Hives codeine Allergy (Verified 12/27/16 20:56) Hives Certification: Further, I certify that my clinical findings support that this patient is homebound (i.e. absences from home require considerable and taxing effort and are for medical reasons or holiness services or infrequently or short duration when for other reasons) because: Homebound Reason: Patient requires assistance of a person or device to safely leave home, Leaving home requires considerable and taxing effort due to condition Attestation: My signature below is to certify that this patient is under my care and that I, or nurse practitioner, or a physician's assistant professor of economics working with me, has a face-to -face encounter with this patient.
== END 2017-01-02 16:32 | disposition home or self-care (01) | DRG 190 ==
LOC: EMEROO 20:53 → 2ANU 22:18 → SUATTDRO 22:18 → 2ANU 23:04
PROVIDERS: ADMIT Internal Medicine; ATTEND Internal Medicine